=== PATIENT | male | born 1980 | race Caucasian/White ===

== ENCOUNTER 2023-11-16 08:24 | Emergency (ER) | payer OTHER ==
[~2023-11-16] VITALS: Ht 190.5 cm; Wt 108.9 kg
[2023-11-16 08:26] VITALS: BP 122/74; PULSE 89; RESP 18; TEMP 96.6; O2SAT 100
[2023-11-16] MEDS: KETOROLAC 30 MG/ML VIAL IM ONE (08:50)
[2023-11-16] MEDS ORDERED: NAPR-54 PO (09:17)
[2023-11-16] MEDS ORDERED: METH4TAB1 PO (09:17)
[2023-11-16 09:25] VITALS: BP 120/70; PULSE 88; RESP 16; TEMP 98; O2SAT 100
== END 2023-11-16 09:25 | disposition home or self-care (01) ==
LOC: MED 08:24
DX: M10.071 Idiopathic gout, right ankle and foot (principal); Z79.899 Other long term (current) drug therapy
CPT/HCPCS: 73630; 96372; 99283; J1885